=== PATIENT | female | born 1945 | race Caucasian/White ===

== ENCOUNTER 2017-05-20 13:23 | Inpatient (IN) | payer OTHER ==
[~2017-05-20] VITALS: Ht 170.2 cm; Wt 101.3 kg
[~2017-05-20 13:23] MED LIST: ACTOS45 M1 PO; AMARYL4 MG PO; B-121000 MCG PO; CALCIUM + VITA1 EAC2 PO; COUMADIN5 M2 PO; Coumadin5 MG PO; HYDR25T PO; INVANZ1 GM/50 ML IV; METFORMIN1000 MG PO; OMEPRAZOLE MAGN20 MG PO; PRAVACHOL20 MG PO; QUINAPRIL20 MG PO; TOPROL XL100 MG PO; ZOLOFT100 MG PO
[2017-05-20 13:27] VITALS: BP 150/78
[2017-05-20 14:07] LABS: BASO # 0.1 10*3/uL (0.0-0.1); BASO % 0.8 % (0.0-1.0); EOS # 0.1 10*3/uL (0.0-0.4); EOS % 0.7 % (1.0-4.0); HEMATOCRIT 38.4 % (37.0-47.0); HEMOGLOBIN 12.7 g/dl (12.0-16.0); LYMPH # 2.4 10*3/uL (1.3-4.4); LYMPH % 33.1 % (27.0-41.0); MEAN CELL VOLUME 87.7 fl (81.0-99.0); MEAN CORPUSCULAR HGB CONC 33.1 g/dl (33.0-37.0); MEAN PLATELET VOLUME 9.4 fl (9.6-12.3); MONO # 0.5 10*3/uL (0.1-1.0); MONO % 6.3 % (3.0-9.0); NEUT # 4.3 10*3/uL (2.3-7.9); NEUT % 58.8 % (47.0-73.0); PLATELET COUNT AUTOMATED 243 10*3/uL (130-400); RED BLOOD COUNT 4.38 10*6/uL (4.10-5.10); RED CELL DISTRI WIDTH 15.8 % (0-14.5); WHITE BLOOD COUNT 7.3 10*3/uL (4.8-10.8)
[2017-05-20 14:23] LABS: ALBUMIN 3.9 gm/dl (3.1-4.5); CREATININE 1.15 mg/dL (0.55-1.02); POTASSIUM 4.6 mmol/L (3.5-5.1); TOTAL PROTEIN 7.7 gm/dL (6.4-8.2)
--- NOTE | 2017-05-20 14:53 | NUR ---
PT STATES REFIEF FROM HER NAUSEA, VOMITIMG AND PAIN. RESTING WITH FAMILY AT HER SIDE.
[2017-05-20] MEDS ORDERED: PERCOCET 10-321 EACH PO (15:52)
[2017-05-20] MEDS ORDERED: FLOMAX0.4 MG PO (15:52)
[2017-05-20] MEDS ORDERED: ZOFRAN4 MG PO (15:52)
[2017-05-20 16:17] LABS: BILIRUBIN 1+ (NEGATIVE); BLOOD 3+ (NEGATIVE); CLARITY TURBID (CLEAR); COLOR YELLOW (YELLOW); GLUCOSE NEGATIVE (NEGATIVE); KETONE TRACE (NEGATIVE); LEUKO ESTERASE 3+ (NEGATIVE); NITRITE POSITIVE (NEGATIVE); PH 6.5 (5.0-9.0); SPECIFIC GRAVITY 1.015 (1.005-1.030)
[2017-05-20 16:22] LABS: RBC TNTC rbc/hpf (0-2)
[2017-05-20] MEDS ORDERED: MACRODANTIN50 MG PO (16:31)
[2017-05-20 21:58] VITALS: BP 126/63
[2017-05-20 23:36] LABS: BASO % 0.3 % (0.0-1.0); EOS % 0.1 % (1.0-4.0); HEMOGLOBIN 11.7 g/dl (12.0-16.0); LYMPH # 0.9 10*3/uL (1.3-4.4); LYMPH % 7.6 % (27.0-41.0); MEAN CELL VOLUME 87.4 fl (81.0-99.0); MEAN CORPUSCULAR HGB 28.4 pg (27.0-31.0); MEAN CORPUSCULAR HGB CONC 32.5 g/dl (33.0-37.0); MEAN PLATELET VOLUME 9.4 fl (9.6-12.3); MONO # 0.7 10*3/uL (0.1-1.0); MONO % 5.9 % (3.0-9.0); NEUT # 10.3 10*3/uL (2.3-7.9); NEUT % 85.6 % (47.0-73.0); PLATELET COUNT AUTOMATED 216 10*3/uL (130-400); RED BLOOD COUNT 4.12 10*6/uL (4.10-5.10); WHITE BLOOD COUNT 12.1 10*3/uL (4.8-10.8)
[2017-05-20 23:50] LABS: ALBUMIN 3.7 gm/dl (3.1-4.5); CREATININE 1.28 mg/dL (0.55-1.02); TOTAL PROTEIN 7.2 gm/dL (6.4-8.2)
[2017-05-21 02:15] VITALS: BP 123/62
--- NOTE | 2017-05-21 02:15 | NUR ---
A 71, admitted to 5E, under the services of JOSE ENRIQUE Cedeno DO with a diagnosis of UTI/SEPSIS. Chief complaint is FEVER. Patient arrived via ambulatory from ER. Monitor applied. Initial assessment completed. Vital signs taken and recorded. JOSE ENRIQUE CEDENO DO notified of admission to the unit. Orders received. See assessment for past medical history, medications and allergies. Patient and/or family oriented to unit. visitation policy reviewed. Clothing/patient valuable form completed. CORTNEY VARGAS
[2017-05-21 02:30] VITALS: BP 123/62
[2017-05-21 06:46] LABS: BASO % 0.3 % (0.0-1.0); EOS % 0.1 % (1.0-4.0); HEMATOCRIT 31.9 % (37.0-47.0); HEMOGLOBIN 10.3 g/dl (12.0-16.0); LYMPH # 2.1 10*3/uL (1.3-4.4); LYMPH % 14.2 % (27.0-41.0); MEAN CELL VOLUME 88.1 fl (81.0-99.0); MEAN CORPUSCULAR HGB 28.5 pg (27.0-31.0); MEAN CORPUSCULAR HGB CONC 32.3 g/dl (33.0-37.0); MEAN PLATELET VOLUME 9.3 fl (9.6-12.3); MONO # 0.9 10*3/uL (0.1-1.0); MONO % 5.9 % (3.0-9.0); NEUT # 11.4 10*3/uL (2.3-7.9); NEUT % 79.1 % (47.0-73.0); PLATELET COUNT AUTOMATED 192 10*3/uL (130-400); RED BLOOD COUNT 3.62 10*6/uL (4.10-5.10); WHITE BLOOD COUNT 14.4 10*3/uL (4.8-10.8)
[2017-05-21 07:24] LABS: CREATININE 1.19 mg/dL (0.55-1.02); MAGNESIUM 1.6 mg/dL (1.5-2.1); PHOSPHOROUS 3.6 mg/dL (2.5-4.9); POTASSIUM 4.4 mmol/L (3.5-5.1); TOTAL PROTEIN 6.4 gm/dL (6.4-8.2)
[2017-05-21 07:30] LABS: THYROID STIM HORMONE (HS) 0.618 uIU/ml (0.358-4.75)
[2017-05-21 08:00] VITALS: BP 134/64
--- NOTE | 2017-05-21 08:23 | NUR ---
MEDICATED WITH VICODIN FOR HEADACHE SHE RATES A 6 ON THE PAIN SCALE.
--- NOTE | 2017-05-21 09:00 | NUR ---
case management attempted to visit with patient, patient was with doctor at this time, will see later today
[2017-05-21 12:00] VITALS: BP 119/52
[2017-05-21 16:00] VITALS: BP 116/58
--- NOTE | 2017-05-21 16:25 | NUR ---
PT COMPLAINS OF HEADACHE 02/09. NORCO GIVEN. SEE MAR.
--- NOTE | 2017-05-21 19:30 | NUR ---
ASSUMED CARE OF PT AT THIS TIME, RESTING IN BED, RESPS EASY AND NONLABORED WITH NO S/S OF DISTRESS CALL LIGHT WITH IN REACH
[2017-05-21 20:00] VITALS: BP 113/51
[2017-05-22] VITALS: BP 117/55
[2017-05-22 07:02] LABS: BASO % 0.3 % (0.0-1.0); EOS # 0.1 10*3/uL (0.0-0.4); EOS % 0.5 % (1.0-4.0); HEMATOCRIT 32.8 % (37.0-47.0); HEMOGLOBIN 10.6 g/dl (12.0-16.0); LYMPH # 1.6 10*3/uL (1.3-4.4); LYMPH % 16.6 % (27.0-41.0); MEAN CELL VOLUME 88.6 fl (81.0-99.0); MEAN CORPUSCULAR HGB 28.6 pg (27.0-31.0); MEAN CORPUSCULAR HGB CONC 32.3 g/dl (33.0-37.0); MEAN PLATELET VOLUME 9.8 fl (9.6-12.3); MONO # 0.8 10*3/uL (0.1-1.0); MONO % 8.3 % (3.0-9.0); NEUT # 7.1 10*3/uL (2.3-7.9); NEUT % 73.8 % (47.0-73.0); PLATELET COUNT AUTOMATED 180 10*3/uL (130-400); RED CELL DISTRI WIDTH 16.2 % (0-14.5); WHITE BLOOD COUNT 9.7 10*3/uL (4.8-10.8)
[2017-05-22 07:29] LABS: CHLORIDE 106 mmol/L (98-107); CREATININE 1.02 mg/dL (0.55-1.02); POTASSIUM 4.3 mmol/L (3.5-5.1); SODIUM 140 mmol/L (136-145)
[2017-05-22 07:30] LABS: BUN 17 mg/dl (7-24)
[2017-05-22 08:00] VITALS: BP 137/58
--- NOTE | 2017-05-22 09:00 | NUR ---
Postmaster Relief in to talk to patient. Patient states lives at home with . There are few steps in the home. Physician: yoav [facility]acy: [facility] Home health services: none Patient's level of ADLs: INDEPENDENT Patient has working utilities: all working DME: none Follow-up physician's appointment after d/c: will be made by hospitalist nurse director upon discharge Does patient want to access PORTAL?: no Discharge plan discussed with patient, patient lives at home with , she is independent in adls and ambulation, states sometimes drives, patient states she will be going back home and denies any home needs. KERMIT KING
[2017-05-22 09:30] LABS: INTERNATIONAL NORM RATIO 1.6 (2.0-3.5)
--- NOTE | 2017-05-22 09:30 | NUR ---
PT REQUESTED PRN PAIN MEDICATION STATES REPORTS PAIN, WILL MONITOR EFFECTS
--- NOTE | 2017-05-22 10:35 | NUR ---
PT REPORTS THAT PRN PAIN MEDICATION EFFECTIVE
[2017-05-22 12:00] VITALS: BP 106/52
[2017-05-22 16:00] VITALS: BP 128/62
[2017-05-22 20:00] VITALS: BP 139/70
--- NOTE | 2017-05-22 20:29 | NUR ---
Medicated with Tylenol po prn for elevated temperature. Will monitor effectiveness. Call light within reach.
[2017-05-23] VITALS: BP 110/50
--- NOTE | 2017-05-23 01:16 | NUR ---
24 HR chart check completed.
[2017-05-23 07:12] LABS: INTERNATIONAL NORM RATIO 1.3 (2.0-3.5)
[2017-05-23 08:00] VITALS: BP 135/70
--- NOTE | 2017-05-23 11:15 | NUR ---
PHYSICAL THERAPY Pt seen for PT evaluation this date, see eval for details. Further therapy not indicated at this date secondary to pt (I) with all transfers and gait. Complexity level: Minimal complexity 14956 per medical chart review and IE findings PRAVEEN TayT
[2017-05-23 12:00] VITALS: BP 130/67
[2017-05-23] MEDS ORDERED: DOXYCYCLINE100 MG PO (13:53)
--- NOTE | 2017-05-23 15:40 | NUR ---
PATIENT DISCHARGED. VERBALIZED UNDERSTANDING OF DISCHARGE INSTRUCTIONS. IV REMOVED AND PRESSURE DRESSING APPLIED
--- NOTE | 2017-05-23 17:29 | NUR ---
PATIENT DISCHARGE. VERBALIZED UNDERSTANDING OF DISCHARGE INSTRUCTIONS. IV REMOVED AND PRESSURE DRESSING APPLIED.
== END 2017-05-23 17:29 | disposition home or self-care (01) | DRG 871 ==
LOC: ED 13:23 → 5E 05-21 01:16 → EDHOLD 05-21 01:16 → 5E 05-21 01:38
PROVIDERS: Hospitalist; Internal Medicine; Nurse Practitioner Family; ADMIT Internal Medicine
DX: A41.9 Sepsis, unspecified organism (principal); N17.0 Acute kidney failure with tubular necrosis; E43 Unspecified severe protein-calorie malnutrition; N13.30 Unspecified hydronephrosis; E11.65 Type 2 diabetes mellitus with hyperglycemia; I48.91 Unspecified atrial fibrillation; F33.9 Major depressive disorder, recurrent, unspecified; N30.01 Acute cystitis with hematuria; R65.20 Severe sepsis without septic shock; N20.0 Calculus of kidney; I10 Essential (primary) hypertension; E78.5 Hyperlipidemia, unspecified; E66.9 Obesity, unspecified; B96.20 Unspecified Escherichia coli [E. coli] as the cause of diseases classified elsewhere; Z79.84 Long term (current) use of oral hypoglycemic drugs; Z79.01 Long term (current) use of anticoagulants; Z98.51 Tubal ligation status; Z68.35 Body mass index [BMI] 35.0-35.9, adult

== ENCOUNTER 2017-09-03 13:54 | Emergency (ER) | payer OTHER ==
[~2017-09-03] VITALS: Ht 167.6 cm; Wt 93.9 kg
[~2017-09-03 13:54] MED LIST changes: +DOXYCYCLINE100 MG PO; +FLOMAX0.4 MG PO; +MACRODANTIN50 MG PO; +PERCOCET 10-321 EACH PO; +ZOFRAN4 MG PO
[2017-09-03 14:45] LABS: BASO # 0.1 10*3/uL (0.0-0.1); BASO % 0.8 % (0.0-1.0); EOS # 0.1 10*3/uL (0.0-0.4); EOS % 1.3 % (1.0-4.0); HEMATOCRIT 40.1 % (37.0-47.0); LYMPH # 1.9 10*3/uL (1.3-4.4); LYMPH % 24.2 % (27.0-41.0); MEAN CELL VOLUME 89.3 fl (81.0-99.0); MEAN CORPUSCULAR HGB CONC 32.4 g/dl (33.0-37.0); MEAN PLATELET VOLUME 9.2 fl (9.6-12.3); MONO # 0.5 10*3/uL (0.1-1.0); MONO % 6.3 % (3.0-9.0); NEUT # 5.3 10*3/uL (2.3-7.9); PLATELET COUNT AUTOMATED 273 10*3/uL (130-400); RED BLOOD COUNT 4.49 10*6/uL (4.10-5.10); RED CELL DISTRI WIDTH 15.2 % (0-14.5); WHITE BLOOD COUNT 7.8 10*3/uL (4.8-10.8)
[2017-09-03 15:00] LABS: CREATININE 1.2 mg/dL (0.55-1.02)
[2017-09-03 15:27] LABS: ACT PARTIAL THROMBO TIME 33.7 SECONDS (19.5-32.1); INTERNATIONAL NORM RATIO 2.4 (2.0-3.5)
== END 2017-09-03 18:48 | disposition home or self-care (01) ==
LOC: ED 13:54
PROVIDERS: Physician Assistant
DX: S00.83XA Contusion of other part of head, initial encounter (principal); S00.33XA Contusion of nose, initial encounter; Z98.51 Tubal ligation status; Z90.89 Acquired absence of other organs; Z79.01 Long term (current) use of anticoagulants; Z79.899 Other long term (current) drug therapy; W22.8XXA Striking against or struck by other objects, initial encounter; Y93.89 Activity, other specified; Y92.89 Other specified places as the place of occurrence of the external cause; Y99.9 Unspecified external cause status

== ENCOUNTER 2017-09-11 11:07 | Emergency (ER) | payer OTHER ==
[~2017-09-11] VITALS: Ht 167.6 cm; Wt 94.8 kg
== END 2017-09-11 13:07 | disposition home or self-care (01) ==
LOC: ED 11:07
DX: S22.42XA Multiple fractures of ribs, left side, initial encounter for closed fracture (principal); I48.91 Unspecified atrial fibrillation; I10 Essential (primary) hypertension; E11.9 Type 2 diabetes mellitus without complications; N17.0 Acute kidney failure with tubular necrosis; E78.5 Hyperlipidemia, unspecified; Z87.442 Personal history of urinary calculi; Z90.89 Acquired absence of other organs; Z98.51 Tubal ligation status; Z79.84 Long term (current) use of oral hypoglycemic drugs; Z79.899 Other long term (current) drug therapy; W17.89XA Other fall from one level to another, initial encounter; Y93.89 Activity, other specified; Y92.89 Other specified places as the place of occurrence of the external cause; Y99.8 Other external cause status

== ENCOUNTER → 2017-10-25 | Outpatient (CLI) | payer OTHER | END | disposition home or self-care (01) | LOC: RAD 11:19 | DX: N95.9 Unspecified menopausal and perimenopausal disorder (principal); R29.890 Loss of height; Z87.81 Personal history of (healed) traumatic fracture ==

== ENCOUNTER → 2018-12-17 | Outpatient (CLI) | payer OTHER | END | disposition home or self-care (01) | LOC: MAMMO 09:57 | DX: Z12.31 Encounter for screening mammogram for malignant neoplasm of breast (principal) ==

== ENCOUNTER 2019-04-27 15:01 | Emergency (ER) | payer OTHER ==
[~2019-04-27] VITALS: Ht 157.4 cm; Wt 88.9 kg
== END 2019-04-27 16:26 | disposition home or self-care (01) ==
LOC: ED 15:01
DX: S02.2XXA Fracture of nasal bones, initial encounter for closed fracture (principal); S00.83XA Contusion of other part of head, initial encounter; M54.2 Cervicalgia; M54.6 Pain in thoracic spine; Z79.01 Long term (current) use of anticoagulants; Z79.899 Other long term (current) drug therapy; Z79.2 Long term (current) use of antibiotics; W01.0XXA Fall on same level from slipping, tripping and stumbling without subsequent striking against object, initial encounter; Y93.89 Activity, other specified; Y92.480 Sidewalk as the place of occurrence of the external cause; Y99.8 Other external cause status

== ENCOUNTER → 2020-07-25 | Outpatient (CLI) | payer OTHER | END | disposition home or self-care (01) | LOC: US 11:30 | PROVIDERS: ATTEND Internal Medicine | DX: M43.16 Spondylolisthesis, lumbar region (principal); M47.816 Spondylosis without myelopathy or radiculopathy, lumbar region; M47.817 Spondylosis without myelopathy or radiculopathy, lumbosacral region; M48.061 Spinal stenosis, lumbar region without neurogenic claudication; M48.07 Spinal stenosis, lumbosacral region; E11.9 Type 2 diabetes mellitus without complications ==

== ENCOUNTER → 2020-08-22 | Outpatient (CLI) | payer OTHER | LOC: US 08:30 | PROVIDERS: ATTEND Internal Medicine | DX: N28.1 Cyst of kidney, acquired (principal); R31.9 Hematuria, unspecified ==

== ENCOUNTER → 2020-10-26 | Outpatient (CLI) | payer OTHER | END | disposition home or self-care (01) | LOC: RAD 13:57 | PROVIDERS: ATTEND Internal Medicine | DX: R07.82 Intercostal pain (principal); Z91.81 History of falling ==

== ENCOUNTER → 2021-02-06 | Outpatient (CLI) | payer OTHER | END | disposition home or self-care (01) | LOC: RAD 16:10 | PROVIDERS: ATTEND Internal Medicine | DX: M19.042 Primary osteoarthritis, left hand (principal); M85.842 Other specified disorders of bone density and structure, left hand; M25.742 Osteophyte, left hand; M25.842 Other specified joint disorders, left hand ==

== ENCOUNTER → 2021-09-06 | Outpatient (CLI) | payer OTHER | LOC: RAD 12:18 | PROVIDERS: ATTEND Internal Medicine | DX: M17.11 Unilateral primary osteoarthritis, right knee (principal); M25.761 Osteophyte, right knee; M77.32 Calcaneal spur, left foot ==

== ENCOUNTER 2022-02-14 17:31 | Emergency (ER) | payer OTHER ==
[~2022-02-14] VITALS: Ht 170.1 cm; Wt 90.7 kg
[2022-02-14 18:38] LABS: BASO % 0.5 % (0.0-1.0); EOS % 0.1 % (1.0-4.0); HEMATOCRIT 44.9 % (37.0-47.0); LYMPH # 1.1 10*3/uL (1.3-4.4); LYMPH % 13.1 % (27.0-41.0); MEAN CELL VOLUME 90.3 fl (81.0-99.0); MEAN CORPUSCULAR HGB 29.2 pg (27.0-31.0); MEAN CORPUSCULAR HGB CONC 32.3 g/dl (33.0-37.0); MONO # 0.6 10*3/uL (0.1-1.0); MONO % 6.8 % (3.0-9.0); NEUT # 6.4 10*3/uL (2.3-7.9); PLATELET COUNT AUTOMATED 187 10*3/uL (130-400); RED BLOOD COUNT 4.97 10*6/uL (4.10-5.10); RED CELL DISTRI WIDTH 16.1 % (0-14.5); WHITE BLOOD COUNT 8.1 10*3/uL (4.8-10.8)
[2022-02-14 18:50] LABS: ACT PARTIAL THROMBO TIME 48.4 SECONDS (20.0-32.1); INTERNATIONAL NORM RATIO 1.8 (2.0-3.5)
[2022-02-14 18:54] LABS: CREATININE 1.08 mg/dL (0.55-1.02); POTASSIUM 4.4 mmol/L (3.5-5.1); TOTAL PROTEIN 7.1 gm/dL (6.4-8.2)
[2022-02-14 19:44] LABS: BILIRUBIN Negative (Negative); BLOOD 1+ (Negative); CLARITY Clear (Clear); COLOR Yellow (Yellow); GLUCOSE 3+ (Negative); KETONE Negative (Negative); LEUKO ESTERASE Negative (Negative); NITRITE Negative (Negative); PH 5.5 (4.5-8.0); SPECIFIC GRAVITY 1.025 (1.001-1.030); UROBILINOGEN 0.2 E.U./dl (0.0-1.0)
[2022-02-14 20:15] LABS: BACTERIA 3+
[2022-02-14] MEDS ORDERED: CEFUROXIME AXE500 MG PO (22:19)
== END 2022-02-14 22:40 | disposition home or self-care (01) ==
LOC: ED 17:31
PROVIDERS: Emergency Medicine; Physician Assistant
DX: N39.0 Urinary tract infection, site not specified (principal); Z90.89 Acquired absence of other organs; Z98.51 Tubal ligation status; Z79.899 Other long term (current) drug therapy

== ENCOUNTER → 2022-04-24 | Outpatient (CLI) | payer OTHER ==
[~2022-04-24] MED LIST changes: +CEFUROXIME AXE500 MG PO
== END | disposition home or self-care (01) ==
LOC: RESCLI 02:38
PROVIDERS: ATTEND Internal Medicine
DX: I48.91 Unspecified atrial fibrillation (principal); E11.9 Type 2 diabetes mellitus without complications; M54.30 Sciatica, unspecified side; N30.90 Cystitis, unspecified without hematuria; Z79.899 Other long term (current) drug therapy; Z79.01 Long term (current) use of anticoagulants

== ENCOUNTER → 2022-07-10 | Outpatient (CLI) | payer OTHER ==
[2022-07-10 12:51] LABS: BUN 20 mg/dl (7-24); CHLORIDE 101 mmol/L (98-107); CREATININE 1.01 mg/dL (0.55-1.02); SODIUM 137 mmol/L (136-145)
== END ==
LOC: LAB 11:01
PROVIDERS: ATTEND Internal Medicine
DX: U07.1 COVID-19 (principal)

== ENCOUNTER 2022-09-07 13:46 | Emergency (ER) | payer OTHER ==
[~2022-09-07] VITALS: Wt 82.1 kg
[2022-09-07 14:21] LABS: BASO # 0.1 10*3/uL (0.0-0.1); BASO % 0.6 % (0.0-1.0); EOS # 0.1 10*3/uL (0.0-0.4); HEMATOCRIT 47.4 % (37.0-47.0); LYMPH # 2.2 10*3/uL (1.3-4.4); LYMPH % 27.1 % (27.0-41.0); MEAN CELL VOLUME 89.1 fl (81.0-99.0); MEAN CORPUSCULAR HGB 28.6 pg (27.0-31.0); MEAN CORPUSCULAR HGB CONC 32.1 g/dl (33.0-37.0); MEAN PLATELET VOLUME 9.4 fl (9.6-12.3); MONO # 0.5 10*3/uL (0.1-1.0); MONO % 6.3 % (3.0-9.0); NEUT # 5.2 10*3/uL (2.3-7.9); NEUT % 64.7 % (47.0-73.0); PLATELET COUNT AUTOMATED 248 10*3/uL (130-400); RED BLOOD COUNT 5.32 10*6/uL (4.10-5.10); RED CELL DISTRI WIDTH 14.9 % (0-14.5)
[2022-09-07] MEDS ORDERED: NAPROSYN500 MG PO (16:08)
[2022-09-07 16:43] LABS: ALKALINE PHOSPHATASE 94 U/L (46-116); BUN 21 mg/dl (9-23); CHLORIDE 100 mmol/L (98-107); POTASSIUM 3.8 mmol/L (3.4-5.1); SGPT/ALT 22 U/L (10-49); TOTAL PROTEIN 7.5 gm/dL (6.0-8.0)
== END 2022-09-07 16:22 | disposition home or self-care (01) ==
LOC: ED 13:46
PROVIDERS: Nurse Practitioner Family
DX: S46.811A Strain of other muscles, fascia and tendons at shoulder and upper arm level, right arm, initial encounter (principal); Z79.899 Other long term (current) drug therapy; Z90.89 Acquired absence of other organs; Z98.51 Tubal ligation status; X50.9XXA Other and unspecified overexertion or strenuous movements or postures, initial encounter; Y93.89 Activity, other specified; Y92.89 Other specified places as the place of occurrence of the external cause; Y99.8 Other external cause status

== ENCOUNTER → 2023-04-29 | Outpatient (CLI) | payer OTHER ==
[~2023-04-29] MED LIST changes: +NAPROSYN500 MG PO
== END | disposition home or self-care (01) ==
LOC: RESCLI 14:05
PROVIDERS: ATTEND Internal Medicine
DX: F32.9 Major depressive disorder, single episode, unspecified (principal); I48.91 Unspecified atrial fibrillation; I10 Essential (primary) hypertension; E11.9 Type 2 diabetes mellitus without complications; E63.9 Nutritional deficiency, unspecified; G62.9 Polyneuropathy, unspecified; K21.9 Gastro-esophageal reflux disease without esophagitis; B49 Unspecified mycosis; N76.0 Acute vaginitis; Z92.21 Personal history of antineoplastic chemotherapy; Z79.2 Long term (current) use of antibiotics; Z79.899 Other long term (current) drug therapy

== ENCOUNTER → 2023-10-07 | Outpatient (CLI) | payer MEDICARE | END | disposition home or self-care (01) | LOC: RAD 14:42 | PROVIDERS: ATTEND Orthopaedic Surgery | DX: Z47.1 Aftercare following joint replacement surgery (principal); M17.11 Unilateral primary osteoarthritis, right knee; M25.461 Effusion, right knee ==

== ENCOUNTER → 2024-04-03 | Outpatient (CLI) | payer MEDICARE | END | disposition home or self-care (01) | LOC: US 09:25 | PROVIDERS: ATTEND Internal Medicine | DX: R16.1 Splenomegaly, not elsewhere classified (principal); M54.50 Low back pain, unspecified ==

== ENCOUNTER → 2024-04-13 | Outpatient (CLI) | payer MEDICARE ==
[2024-04-13 16:02] LABS: BASO # 0.1 10*3/uL (0.0-0.1); BASO % 0.8 % (0.0-1.0); BILIRUBIN Negative (Negative); BLOOD Negative (Negative); CLARITY Clear (Clear); COLOR Yellow (Yellow); EOS # 0.1 10*3/uL (0.0-0.4); EOS % 1.2 % (1.0-4.0); GLUCOSE Negative (Negative); HEMATOCRIT 40.4 % (37.0-47.0); KETONE Negative (Negative); LEUKO ESTERASE Negative (Negative); LYMPH # 2.4 10*3/uL (1.3-4.4); LYMPH % 28.6 % (27.0-41.0); MEAN CELL VOLUME 91.8 fl (81.0-99.0); MEAN CORPUSCULAR HGB 29.3 pg (27.0-31.0); MEAN CORPUSCULAR HGB CONC 31.9 g/dl (33.0-37.0); MEAN PLATELET VOLUME 9.5 fl (9.6-12.3); MONO # 0.7 10*3/uL (0.1-1.0); MONO % 7.8 % (3.0-9.0); NEUT # 5.1 10*3/uL (2.3-7.9); NEUT % 61.4 % (47.0-73.0); NITRITE Negative (Negative); PH 5.5 (4.5-8.0); PLATELET COUNT AUTOMATED 205 10*3/uL (130-400); RED CELL DISTRI WIDTH 14.2 % (0-14.5); SPECIFIC GRAVITY 1.015 (1.001-1.030); UROBILINOGEN 0.2 E.U./dl (0.0-1.0); WHITE BLOOD COUNT 8.3 10*3/uL (4.8-10.8)
[2024-04-13 16:15] LABS: HYALINE CAST 0-2; WBC 0-2 wbc/hpf (0-5)
[2024-04-13 16:26] LABS: POTASSIUM 4.7 mmol/L (3.4-5.1); TOTAL PROTEIN 7.3 gm/dL (6.0-8.0)
== END | disposition home or self-care (01) ==
LOC: LAB 15:38
PROVIDERS: ATTEND Urology
DX: N39.0 Urinary tract infection, site not specified (principal)

== ENCOUNTER → 2024-04-14 | Outpatient (CLI) | payer MEDICARE ==
[~2024-04-14] MED LIST changes: +IOHEXOL 350 MG/ML 100 ML VIAL IV ONE
== END | disposition home or self-care (01) ==
LOC: CT 01:56
PROVIDERS: ATTEND Urology
DX: N20.0 Calculus of kidney (principal); N26.1 Atrophy of kidney (terminal); K76.0 Fatty (change of) liver, not elsewhere classified; K80.20 Calculus of gallbladder without cholecystitis without obstruction; K57.30 Diverticulosis of large intestine without perforation or abscess without bleeding; I25.10 Atherosclerotic heart disease of native coronary artery without angina pectoris

== ENCOUNTER → 2024-05-20 | Outpatient (CLI) | payer MEDICARE ==
[~2024-05-20] MED LIST changes: -IOHEXOL 350 MG/ML 100 ML VIAL IV ONE; +SINCALIDE 1.72 MCG in SODIUM CHLORIDE 0.9% 50 ML IV SCH; +SINCALIDE 5 MCG VIAL IV SCH; +Technetium Tc 99M Mebrofenin 1 KIT KIT IV SCH
== END | disposition home or self-care (01) ==
LOC: NM 00:42
PROVIDERS: ATTEND Internal Medicine
DX: K80.20 Calculus of gallbladder without cholecystitis without obstruction (principal)